=== PATIENT | male | born 1995 | race African-American/Black ===

== ENCOUNTER 2017-06-14 00:30 | Emergency (ER) | payer SELFPAY | END 2017-06-14 01:07 | LOC: MADERS 00:30 | DX: R56.9 Unspecified convulsions (principal) | CPT/HCPCS: 99284 ==

== ENCOUNTER 2017-11-28 06:01 | Emergency (ER) | payer SELFPAY | END 2017-11-28 06:22 | disposition home or self-care (01) | LOC: MADERS 06:01 | DX: R56.9 Unspecified convulsions (principal); Z79.899 Other long term (current) drug therapy | CPT/HCPCS: 99284 ==